=== PATIENT | male | born 1965 | race Caucasian/White ===

== ENCOUNTER 2017-07-29 21:35 | Emergency (ER) | payer OTHER ==
[~2017-07-29] VITALS: Ht 172.7 cm; Wt 104.5 kg
[2017-07-29 21:37] VITALS: TEMP 97.8
[2017-07-29 21:52] LABS: BASO % 0.3 % (0.0-2.0); EOS # 0.2 (0.0-0.7); EOS % 2.7 % (0-4.0); GRAN # 3.8 (1.4-6.5); GRAN % 53.3 % (42.2-75.2); HEMATOCRIT 41.9 % (42.0-52.0); LYMPH # 2.1 (1.2-3.4); LYMPH % 30.2 % (20.0-51.0); MEAN CELL VOLUME 90 fl (80.0-100.0); MEAN CORPUSCULAR HEMOGLOBIN 32 pg (27.0-31.0); MEAN CORPUSCULAR HGB CONC 36 g/dl (33.0-37.0); MEAN PLATELET VOLUME 10.9 fl (7.4-10.4); MONO # 0.9 (0.1-0.6); MONO % 13.1 % (1.7-9.3); PLATELET COUNT 196 K/mm3 (130-400); RED BLOOD COUNT 4.68 M/mm3 (4.20-5.60); WHITE BLOOD COUNT 7.1 K/mm3 (4.8-10.8)
[2017-07-29] MEDS ORDERED: COZAAR100 MG PO (21:54)
[2017-07-29] MEDS ORDERED: XANAX 0.5MG0.5 MG PO (21:55)
[2017-07-29 22:02] LABS: ALANINE AMINOTRANSFERASE 48 U/L (21-72); ALBUMIN 4.5 gm/dL (3.5-5.0); ALKALINE PHOSPHATASE 66 U/L (50-136); ANION GAP 9 mmol/L (7-16); BILIRUBIN,TOTAL 0.7 mg/dL (0.0-1.0); BLOOD UREA NITROGEN 17 mg/dL (9-20); CALCIUM 9.4 mg/dL (8.4-10.2); CARBON DIOXIDE 26 mmol/L (22-30); CHLORIDE 101 mmol/L (98-107); CREATININE, serum 1.01 mg/dL (0.66-1.25); GLUCOSE 122 mg/dL (74-106); LIPASE 143 U/L (23-300); POTASSIUM 3.7 mmol/L (3.4-5.0); SODIUM 136 mmol/L (137-145); TOTAL PROTEIN 7.8 gm/dL (6.4-8.2)
[2017-07-29 22:14] LABS: B-TYPE NATRIURETIC PEPTIDE 53 pg/mL (0-125)
[2017-07-29 22:15] LABS: TROPONIN-I < 0.012 ng/mL (0.000-0.034)
[2017-07-29] MEDS ORDERED: TOPROL XL 50MG50 MG PO (23:31)
[2017-07-30 01:23] VITALS: BP 157/91; PULSE 68
== END 2017-07-30 01:23 | disposition home or self-care (01) ==
LOC: COL.ER 21:35
PROVIDERS: Emergency Medicine
DX: R07.9 Chest pain, unspecified (principal); I10 Essential (primary) hypertension; E78.5 Hyperlipidemia, unspecified
CPT/HCPCS: J7030

== ENCOUNTER 2021-07-22 06:45 | Inpatient (IN) | payer OTHER ==
[~2021-07-22] VITALS: Ht 172.7 cm; Wt 90.9 kg
[~2021-07-22 06:45] MED LIST: COZAAR100 MG PO; TOPROL XL 50MG50 MG PO; XANAX 0.5MG0.5 MG PO
[2021-07-22 07:23] LABS: BASO % 0.2 % (0.0-2.0); EOS # 0.1 K/mm3 (0.0-0.7); EOS % 1.7 % (0.0-4.0); GRAN # 4.9 K/mm3 (1.4-6.5); GRAN % 60.1 % (42.2-75.2); HEMATOCRIT 43.8 % (42.0-52.0); LYMPH % 25.2 % (20.0-51.0); MEAN CELL VOLUME 88 fl (80.0-100.0); MEAN CORPUSCULAR HEMOGLOBIN 30 pg (27-31); MEAN CORPUSCULAR HGB CONC 34 g/dl (33.0-37.0); MEAN PLATELET VOLUME 10.3 fl (7.4-10.4); MONO % 12.6 % (1.7-9.3); PLATELET COUNT 250 K/mm3 (130-400); RED BLOOD COUNT 4.97 M/mm3 (4.20-5.60); REDCELL DISTRIBUTION WIDTH-CV 12.5 % (11.5-14.5)
[2021-07-22 07:42] LABS: ALANINE AMINOTRANSFERASE 13 U/L (0-55); ALBUMIN 4.2 gm/dL (3.5-5.0); ALKALINE PHOSPHATASE 92 U/L (40-150); ANION GAP 12 mmol/L (7-16); AST,SGOT 13 U/L (5-34); BILIRUBIN,TOTAL 0.8 mg/dL (0.2-1.2); BLOOD UREA NITROGEN 10 mg/dL (8-26); CALCIUM 9.3 mg/dL (8.4-10.2); CARBON DIOXIDE 23 mmol/L (22-29); CHLORIDE 103 mmol/L (98-107); CREATININE, serum 0.99 mg/dL (0.72-1.25); GLUCOSE 140 mg/dL (70-99); POTASSIUM 3.7 mmol/L (3.5-4.5); SODIUM 138 mmol/L (136-145); TOTAL PROTEIN 8.3 gm/dL (6.2-8.1)
[2021-07-22 07:52] LABS: TROPONIN-I < 0.010 ng/mL (0.00-0.033)
[2021-07-22] MEDS ORDERED: NORVASC 5MG5 MG/TAB PO (09:43)
[2021-07-22 10:30] VITALS: BP 135/77; PULSE 127; TEMP 97.8
--- NOTE | 2021-07-22 11:15 | NUR ---
Pt arrived to the floor from ED, he is alert and oriented with no pain complaints. Pt does appear to be a little anxious, talking quickly and elaborating on stories when questions asked. Med rec complete and oriented pt to room and discussed plan of care. All questions answered, call light within reach
[2021-07-22 11:25] VITALS: BP 122/73; PULSE 107; TEMP 97.8
--- NOTE | 2021-07-22 11:35 | NUR ---
Pt rang call light stating that he was feeling flushed and was diaphoretic. pt reports not feeling light headed, rechecked VS which are comparable to what they were when he arrived to the floor. JUAN Rutherford notified
[2021-07-22 13:42] LABS: THYROID STIMULATING HORMONE 0.816 uIU/mL (0.350-4.940); TROPONIN-I 6 HR POST INITIAL < 0.010 ng/mL (0.00-0.033)
[2021-07-22 16:05] VITALS: BP 106/70; PULSE 74; TEMP 98.5
--- NOTE | 2021-07-22 16:35 | NUR ---
Pt doing well with no complaints. remains at bedside. No pain complaints. Aware of how to order dinner. Stated he will order around 6:00pm. No other needs, call light within reach, will continue to monitor
[2021-07-22 19:50] VITALS: BP 121/74; PULSE 74; TEMP 98.7
--- NOTE | 2021-07-22 20:00 | NUR ---
Assessment complete. Patient alert and oriented with no complaints of pain or SOA. HR is currently sinus slim with rate in the 60's. Patient independent in room. No new concerns, call light in reach.
[2021-07-23 00:16] VITALS: BP 120/75; PULSE 67; TEMP 97.6
[2021-07-23 04:23] VITALS: BP 122/74; PULSE 89; TEMP 98
[2021-07-23 06:32] LABS: BASO % 0.3 % (0.0-2.0); EOS # 0.1 K/mm3 (0.0-0.7); EOS % 1.3 % (0.0-4.0); GRAN # 4.3 K/mm3 (1.4-6.5); GRAN % 63.8 % (42.2-75.2); HEMATOCRIT 43.5 % (42.0-52.0); HEMOGLOBIN 14.6 g/dl (13.5-18.0); LYMPH # 1.6 K/mm3 (1.2-3.4); LYMPH % 23.3 % (20.0-51.0); MEAN CELL VOLUME 90 fl (80.0-100.0); MEAN CORPUSCULAR HEMOGLOBIN 30 pg (27-31); MEAN CORPUSCULAR HGB CONC 34 g/dl (33.0-37.0); MEAN PLATELET VOLUME 10.6 fl (7.4-10.4); MONO # 0.8 K/mm3 (0.1-0.6); MONO % 11.2 % (1.7-9.3); PLATELET COUNT 244 K/mm3 (130-400); RED BLOOD COUNT 4.85 M/mm3 (4.20-5.60); REDCELL DISTRIBUTION WIDTH-CV 12.7 % (11.5-14.5)
[2021-07-23 06:43] LABS: CALCIUM 9.8 mg/dL (8.4-10.2); CREATININE, serum 0.92 mg/dL (0.72-1.25); POTASSIUM 4.2 mmol/L (3.5-4.5)
--- NOTE | 2021-07-23 07:50 | NUR ---
Pt doing well this morning. Reports feeling much better and more his "normal." Pt denies any pain. he is looking at his menu for breakfast. No needs verbalized, call light within reach
[2021-07-23 08:38] VITALS: BP 120/83; PULSE 78; TEMP 97.9
--- NOTE | 2021-07-23 10:57 | NUR ---
social welfare research worker met with patient to discuss discharge plan. Patient reports that he lives at home with his Christine ([phone]) whom is present at bedside. Patient reports that he is fully independent with his activities of daily living and does not utilze any DME to assist with mobility. Patient reports that he has no oxygen needs. PCP is "someone" at [facility], he isn't sure who it is now. Patient also uses [facility] for medications but for medication upon discharge he would like them sent to [facility]. Patient reports that he does have a [facility] established and that his agent listed is his . Patient is planning on returning home with no concerns. Discharge plan: Home with spouse.
[2021-07-23] MEDS ORDERED: CARDIZEM CD 12120 MG PO (11:07)
[2021-07-23] MEDS ORDERED: ASPIRIN E.C. 8181 MG PO (11:11)
[2021-07-23] MEDS ORDERED: COZAAR100 MG PO (11:12)
--- NOTE | 2021-07-23 11:53 | NUR ---
Reviewed discharge instructions with pt, present in the room. Instructed to call for primary care appointment on Sunday. Cardiology would call him Sunday with appointment. Reviewed prescriptions as well. INT removed from right AC and pt escorted out
== END 2021-07-23 11:54 | disposition home or self-care (01) | DRG 310 ==
LOC: COL.ER 06:45 → MEDICAL 09:07
PROVIDERS: Physician Assistant; Student in an Organized Health Care Education/Training Program
DX: I48.91 Unspecified atrial fibrillation (principal); F41.9 Anxiety disorder, unspecified; I10 Essential (primary) hypertension; Z20.822 Contact with and (suspected) exposure to COVID-19
CPT/HCPCS: J1650

== ENCOUNTER → 2022-02-23 | Outpatient (CLI) | payer OTHER ==
[~2022-02-23] MED LIST changes: +ASPIRIN E.C. 8181 MG PO; +CARDIZEM CD 12120 MG PO; +NORVASC 5MG5 MG/TAB PO
== END ==
LOC: ZCOL.LAB 16:49
DX: R06.02 Shortness of breath (principal); Z86.16 Personal history of COVID-19

== ENCOUNTER → 2022-10-31 | Outpatient (CLI) | payer OTHER ==
[2022-10-31 14:33] LABS: CALCIUM 9.5 mg/dL (8.4-10.2); CREATININE, serum 0.87 mg/dL (0.72-1.25); MAGNESIUM 2.1 mg/dL (1.6-2.6); POTASSIUM 4.2 mmol/L (3.5-4.5)
== END ==
LOC: COL.RAD 08:00
PROVIDERS: Internal Medicine Adult Congenital Heart Disease
DX: I77.810 Thoracic aortic ectasia (principal); I10 Essential (primary) hypertension
CPT/HCPCS: Q9967